=== PATIENT | male | born 1960 | race Caucasian/White ===

== ENCOUNTER 2019-10-30 14:45 | Emergency (ER) | payer OTHER ==
[2019-10-30 14:56] VITALS: RESP 18; TEMP 98.3
--- NOTE | 2019-10-30 15:18 | ED ---
Recheck HPI - General Chief Complaint: Recheck/Abnormal Lab/Rx Stated Complaint: Low Blood Count - [facility] Time Seen by Provider: 10/30/19 15:15 Source: patient, RN notes reviewed, old records reviewed Mode of arrival: ambulatory Limitations: no limitations - History of Present Illness Initial Comments: This is a 59-year-old male DF for evaluation of abnormal outpatient lab testing. Patient's medical history is unremarkable although recent medical history for dental abscess on 2 antibiotics amoxicillin and clindamycin also taking Motrin for the pain 3 times a day 800. His been for a few weeks noticed bruising diffuse bruising on his body about a week ago he did bump into a railing or doorjamb at his house when has significant bruising that unlike he's never had before otherwise feels fine denying any vomiting of blood in his vomit denying any blood in his stool. [facility] and told his platelet count was 11 told to come to emergency patient presents without complaint currently MD Complaint: abnormal lab (Platelet count) -: unknown Returns Today for: Called Because of Abnormal Lab/Test Symptoms Since Prior Visit: no new symptoms (Patient has persistent bruising) Context: called for abnormal lab result Associated Symptoms: none - Related Data Allergies Allergy/AdvReac Type Severity Reaction Status Date / Time clindamycin [From Cleocin] AdvReac Abdominal Verified 10/30/19 14:56 Pain Review of Systems ROS Statement: Those systems with pertinent positive or pertinent negative responses have been documented in the HPI. ROS Other: All systems not noted in ROS Statement are negative. Past Medical History Additional Past Medical History / Comment(s): Recent abscess tooth History of Any Multi-Drug Resistant Organisms: None Reported Additional Past Surgical History / Comment(s): cervial fusion, laminectomy Past Psychological History: No Psychological Hx Reported Smoking Status: Former smoker Past Alcohol Use History: Daily Past Drug Use History: None Reported General Exam - General Exam Comments Initial Comments: Different areas with different stage bruising on abdomen arms shoulder Limitations: no limitations General appearance: alert, in no apparent distress Head exam: Present: atraumatic, normocephalic, normal inspection Eye exam: Present: normal appearance, PERRL, EOMI. Absent: scleral icterus, conjunctival injection, periorbital swelling ENT exam: Present: normal exam, mucous membranes moist Neck exam: Present: normal inspection. Absent: tenderness, meningismus, lymphadenopathy Respiratory exam: Present: normal lung sounds bilaterally. Absent: respiratory distress, wheezes, rales, rhonchi, stridor Cardiovascular Exam: Present: regular rate, normal rhythm, normal heart sounds. Absent: systolic murmur, diastolic murmur, rubs, gallop, clicks GI/Abdominal exam: Present: soft, normal bowel sounds. Absent: distended, tenderness, guarding, rebound, rigid Extremities exam: Present: normal inspection, full ROM, normal capillary refill. Absent: tenderness, pedal edema, joint swelling, calf tenderness Back exam: Present: normal inspection Neurological exam: Present: alert, oriented X3, CN II-XII intact Psychiatric exam: Present: normal affect, normal mood Skin exam: Present: warm, dry, intact, normal color. Absent: rash Course Vital Signs 10/30/19 14:51 Temperature 98.3 F Pulse Rate 64 Respiratory 18 Rate Blood Pressure 146/76 O2 Sat by Pulse 96 Oximetry - Reevaluation(s) Reevaluation #1: 10/30/19 16:12 Medical record laboratories values are reviewed - Consultations Consultation #1: Spoke with Dr. Franco who states patient does not need to be admitted to the hospital will follow-up in office Medical Decision Making - Medical Decision Making 59 male DF for evaluation of likely ITP or medication induced thromboCytopenia no active acute bleed is not anemic vital signs are stable. Patient will follow with oncology in the next week replacement steroids - Lab Data Result diagrams: 10/30/19 15:32 10/30/19 15:32 Lab Results 10/30/19 10/30/19 Range/Units 15:32 15:32 WBC 4.8 (3.8-10.6) k/uL RBC 5.04 (4.30-5.90) m/uL Hgb 15.5 (13.0-17.5) gm/dL Hct 46.6 (39.0-53.0) % MCV 92.5 (80.0-100.0) fL MCH 30.7 (25.0-35.0) pg MCHC 33.2 (31.0-37.0) g/dL RDW 12.9 (11.5-15.5) % Plt Count 17 L* (150-450) k/uL Neutrophils % 62 % Lymphocytes % 25 % Monocytes % 7 % Eosinophils % 4 % Basophils % 1 % Neutrophils # 3.0 (1.3-7.7) k/uL Lymphocytes # 1.2 (1.0-4.8) k/uL Monocytes # 0.3 (0-1.0) k/uL Eosinophils # 0.2 (0-0.7) k/uL Basophils # 0.0 (0-0.2) k/uL Sodium 139 (137-145) mmol/L Potassium 4.1 (3.5-5.1) mmol/L Chloride 105 (98-107) mmol/L Carbon Dioxide 28 (22-30) mmol/L Anion Gap 6 mmol/L BUN 16 (9-20) mg/dL Creatinine 0.85 (0.66-1.25) mg/dL Est GFR (CKD-EPI)AfAm >90 (>60 ml/min/1.73 sqM) Est GFR (CKD-EPI)NonAf >90 (>60 ml/min/1.73 sqM) Glucose 99 (74-99) mg/dL Calcium 9.4 (8.4-10.2) mg/dL Phosphorus 4.0 (2.5-4.5) mg/dL Magnesium 2.1 (1.6-2.3) mg/dL Total Bilirubin 0.4 (0.2-1.3) mg/dL AST 35 (17-59) U/L ALT 32 (4-49) U/L Alkaline Phosphatase 46 (38-126) U/L Total Protein 6.7 (6.3-8.2) g/dL Albumin 4.2 (3.5-5.0) g/dL Disposition Clinical Impression: Drug-induced ITP, Thrombocytopenia Disposition: HOME SELF-CARE Condition: Good Instructions (If sedation given, give patient instructions): Immune Thrombocytopenia (ED), Thrombocytopenia (ED) Is patient prescribed a controlled substance at d/c from ED?: No Referrals: Kingsley Franco MD [STAFF PHYSICIAN] - 1-2 days
[2019-10-30 15:50] LABS: Basophils % (A) 1 %; Eosinophils # (A) 0.2 k/uL (0-0.7); Eosinophils % (A) 4 %; HCT 46.6 % (39.0-53.0); HGB 15.5 gm/dL (13.0-17.5); Lymphocytes # (A) 1.2 k/uL (1.0-4.8); Lymphocytes % (A) 25 %; MCH 30.7 pg (25.0-35.0); MCHC 33.2 g/dL (31.0-37.0); MCV 92.5 fL (80.0-100.0); Mean Platelet Volume 12.1; Monocytes # (A) 0.3 k/uL (0-1.0); Monocytes % (A) 7 %; Neutrophils % (A) 62 %; RBC 5.04 m/uL (4.30-5.90); RDW 12.9 % (11.5-15.5); WBC 4.8 k/uL (3.8-10.6)
[2019-10-30 15:53] LABS: ALT 32 U/L (4-49); AST 35 U/L (17-59); African American GFR (CKD) >90 (>60 ml/min/1.73 sqM); Albumin 4.2 g/dL (3.5-5.0); Alkaline Phosphatase 46 U/L (38-126); Anion Gap 6 mmol/L; Blood Urea Nitrogen 16 mg/dL (9-20); Calcium 9.4 mg/dL (8.4-10.2); Carbon Dioxide 28 mmol/L (22-30); Chloride 105 mmol/L (98-107); Glucose 99 mg/dL (74-99); Magnesium 2.1 mg/dL (1.6-2.3); Non-African American GFR(CKD) >90 (>60 ml/min/1.73 sqM); Potassium 4.1 mmol/L (3.5-5.1); Sodium 139 mmol/L (137-145); Total Bilirubin 0.4 mg/dL (0.2-1.3); Total Protein 6.7 g/dL (6.3-8.2)
[2019-10-30 16:06] LABS: Platelet Count 17 k/uL (150-450)
[2019-10-30] MEDS ORDERED: DEXAMETHASONE SOD PHOSPHATE 10 MG/ML 1 ML VIAL IV STA (16:36)
[2019-10-30] MEDS ORDERED: dexAMETHasone 4 MG TAB PO STA (17:10)
[2019-10-30 17:16] VITALS: BP 144/75; PULSE 66
== END 2019-10-30 17:14 | disposition home or self-care (01) ==
LOC: EC 14:45
DX: D69.59 Other secondary thrombocytopenia (principal); Z88.1 Allergy status to other antibiotic agents; Z98.1 Arthrodesis status; Z87.891 Personal history of nicotine dependence
CPT/HCPCS: 36415; 80053; 83735; 84100; 85025; 99283; J8540